=== PATIENT | female | born 1975 | race Asian ===

== ENCOUNTER 2017-09-25 00:01 | Inpatient (IN) | payer SELFPAY ==
[~2017-09-25] VITALS: Ht 162.6 cm; Wt 64.4 kg
[2017-09-25 00:20] VITALS: BP 113/67
[2017-09-25 00:51] LABS: BASOPHILS # (AUTO) 0.1 K/uL (0.00-0.22); BASOPHILS % (AUTO) 0.7 % (0.0-2.0); EOSINOPHILS # (AUTO) 0.1 K/uL (0-0.4); EOSINOPHILS % (AUTO) 1.4 % (0.0-4.0); HEMATOCRIT 36.8 % (36-48); HEMOGLOBIN 12.4 g/dL (12.0-16.0); LYMPHOCYTES # (AUTO) 2.2 K/uL (2.5-16.5); MEAN CORPUSCULAR HEMOGLOBIN 33 pg (27-31); MEAN CORPUSCULAR HGB CONC 34 g/dL (33-37); MEAN CORPUSCULAR VOLUME 98 fL (80-94); MONOCYTES # (AUTO) 0.4 K/uL (0.8-1.0); MONOCYTES % (AUTO) 4.1 % (1.7-9.3); NEUTROPHILS # (AUTO) 7.3 K/uL (1.8-7.7); NEUTROPHILS % (AUTO) 71.8 % (42.2-75.2); PLATELET COUNT (AUTO) 254 K/uL (140-450); RED BLOOD CELL COUNT(AUTO) 3.76 MIL/uL (4.20-5.40); RED CELL DISTRIBUTION WIDTH 12.4 % (11.6-13.7); WHITE BLOOD COUNT (AUTO) 10.1 K/uL (4.8-10.8)
[2017-09-25 01:06] LABS: APPEARANCE,URINE CLEAR (CLEAR); BILIRUBIN,URINE NEGATIVE (NEGATIVE); BLOOD, URINE NEGATIVE (NEGATIVE); COLOR,URINE YELLOW (YELLOW); LEUKOCYTE ESTERASE ,URINE NEGATIVE (NEGATIVE); NITRITE, URINE NEGATIVE (NEGATIVE); PH,URINE 7.5 (5.0-9.0); UGLUCOSE NEGATIVE (NEGATIVE)
[2017-09-25] MEDS: LACTATED RINGERS 1,000 ML IV SCH ×2 (01:53→03:43)
[2017-09-25] MEDS ORDERED: PREN-546 PO (02:07)
[2017-09-25] MEDS ORDERED: CALC500T2 PO (02:07)
[2017-09-25] MEDS ORDERED: CLINDAMYCIN 900 MG in DEXTROSE 5% 100 ML IV SCH (05:00)
[2017-09-25] MEDS ORDERED: CLINDAMYCIN 900 MG/6 ML VIAL IV ONE (06:15)
[2017-09-25] MEDS ORDERED: BUPIVACAINE-MPF 0.75% 10 ML VIAL INJ ONE (07:00)
[2017-09-25] MEDS ORDERED: OXYTOCIN 10 UNITS/ML VIAL ONE (07:08)
[2017-09-25] MEDS ORDERED: TRIAMCINOLONE 40 MG/ML 5ML VIAL ONE (07:08)
[2017-09-25] MEDS ORDERED: MORPHINE PRES FREE 10 MG/10 ML AMP IV ONE (07:10)
[2017-09-25] MEDS ORDERED: MIDAZOLAM 2 MG/2 ML VIAL ONE (07:10)
[2017-09-25] MEDS ORDERED: OXYTOCIN 20 UNITS in LACTATED RINGERS 1,000 ML IV SCH (07:33)
[2017-09-25] MEDS ORDERED: diphenhydrAMINE 50 MG/ML VIAL IVP PRN ×2 (07:35)
[2017-09-25] MEDS ORDERED: NALOXONE 0.4 MG/ML VIAL IVP PRN ×3 (07:35)
[2017-09-25] MEDS ORDERED: NALBUPHINE 10 MG/ML AMP IVP PRN (07:35)
[2017-09-25] MEDS ORDERED: HYDROmorphone PFS 2 MG/ML SYR IVP PRN (07:35)
[2017-09-25] MEDS ORDERED: MEPERIDINE 25 MG/ML SYR IVP PRN (07:35)
[2017-09-25] MEDS ORDERED: ONDANSETRON 4 MG/2 ML VIAL IVP PRN ×2 (07:35)
[2017-09-25] MEDS ORDERED: ONDANSETRON 4 MG/2 ML VIAL ONE (08:14)
[2017-09-25] MEDS ORDERED: OXYTOCIN 20 UNITS/LR PREMIX 1,000 ML IV ONE (08:14)
--- NOTE | 2017-09-25 08:28 | NUR ---
PATIENT HAS BEEN SCREENED AND CATEGORIZED LOW NUTRITION RISK. PATIENT WILL BE SEEN IN 7 DAYS. 10/01/[address]
[2017-09-25] MEDS ORDERED: oxyCODONE/APAP 5/325 MG 1 TAB TAB PO PRN (10:25)
[2017-09-25] MEDS ORDERED: METHYLERGONOVINE 0.2 MG/ML AMP IM PRN (10:25)
[2017-09-25] MEDS ORDERED: TEMAZEPAM 15 MG CAP PO PRN (10:25)
[2017-09-25] MEDS ORDERED: MEASLES, MUMPS, AND RUBELLA 1 VIAL SQVAC PRN (10:25)
[2017-09-25] MEDS: OXYTOCIN 20 UNITS in DEXT 5% / LACT RING 1,000 ML IV SCH ×2 (11:11→18:58)
[2017-09-25] MEDS: KETOROLAC 30 MG/ML VIAL IM/IVP SCH ×3 (12:26→23:34)
[2017-09-25] MEDS: BISACODYL 5 MG TABEC PO SCH (21:00)
[2017-09-26] MEDS ORDERED: OXYTOCIN 20 UNITS/LR PREMIX 1,000 ML IV ONE (02:46)
[2017-09-26] MEDS: OXYTOCIN 20 UNITS in DEXT 5% / LACT RING 1,000 ML IV SCH (03:00)
[2017-09-26] MEDS ORDERED: LACTATED RINGERS 1,000 ML IV SCH (05:45)
[2017-09-26 08:35] LABS: BASOPHILS # (AUTO) 0.1 K/uL (0.00-0.22); BASOPHILS % (AUTO) 0.9 % (0.0-2.0); EOSINOPHILS % (AUTO) 0.1 % (0.0-4.0); HEMATOCRIT 30.3 % (36-48); HEMOGLOBIN 10.1 g/dL (12.0-16.0); LYMPHOCYTES # (AUTO) 1.5 K/uL (2.5-16.5); LYMPHOCYTES % (AUTO) 11.1 % (20.5-51.1); MEAN CORPUSCULAR HEMOGLOBIN 33 pg (27-31); MEAN CORPUSCULAR HGB CONC 33 g/dL (33-37); MEAN CORPUSCULAR VOLUME 97 fL (80-94); MONOCYTES # (AUTO) 0.2 K/uL (0.8-1.0); MONOCYTES % (AUTO) 1.5 % (1.7-9.3); NEUTROPHILS # (AUTO) 11.5 K/uL (1.8-7.7); NEUTROPHILS % (AUTO) 86.4 % (42.2-75.2); PLATELET COUNT (AUTO) 233 K/uL (140-450); RED BLOOD CELL COUNT(AUTO) 3.12 MIL/uL (4.20-5.40); RED CELL DISTRIBUTION WIDTH 12.4 % (11.6-13.7); WHITE BLOOD COUNT (AUTO) 13.3 K/uL (4.8-10.8)
[2017-09-26] MEDS: HYDROcodone/APAP 5/325 MG 1 TAB TAB PO PRN ×2 (08:38→12:21)
[2017-09-26] MEDS: BISACODYL 5 MG TABEC PO SCH ×2 (11:00→23:07)
[2017-09-26] MEDS ORDERED: HYDROcodone/APAP 10/325 MG 1 TAB TAB PO PRN (16:55)
[2017-09-26] MEDS: IBUPROFEN 800 MG TAB PO PRN (17:26)
[2017-09-26] MEDS: oxyCODONE/APAP 5/325 MG 1 TAB TAB PO PRN (23:07)
[2017-09-26] MEDS: SIMETHICONE 80 MG TAB.CHEW PO PRN (23:07)
[2017-09-27] MEDS: BISACODYL 5 MG TABEC PO SCH (11:50)
[2017-09-27] MEDS: SIMETHICONE 80 MG TAB.CHEW PO PRN (12:01)
[2017-09-27] MEDS ORDERED: IBUPROFEN 800 MG TAB ONE (14:39)
[2017-09-27] MEDS: IBUPROFEN 800 MG TAB PO PRN (14:40)
[2017-09-27] MEDS ORDERED: SODIUM PHOSPHATE 118 ML ENEM RC SCH (16:30)
[2017-09-27] MEDS ORDERED: oxyCODONE/APAP 5/325 MG 1 TAB TAB ONE (20:21)
[2017-09-27] MEDS: oxyCODONE/APAP 5/325 MG 1 TAB TAB PO PRN (20:24)
[2017-09-28] MEDS ORDERED: oxyCODONE/APAP 5/325 MG 1 TAB TAB ONE ×2 (02:15→06:38)
[2017-09-28] MEDS: oxyCODONE/APAP 5/325 MG 1 TAB TAB PO PRN ×3 (02:18→12:45)
[2017-09-28] MEDS ORDERED: INFLUENZA VIRUS VACCINE QUAD 0.5 ML SYR IMVAC ONE (05:48)
[2017-09-28] MEDS: BISACODYL 5 MG TABEC PO SCH (12:40)
[2017-09-28] MEDS: IBUPROFEN 800 MG TAB PO PRN (17:03)
== END 2017-09-28 21:15 | disposition home or self-care (01) | DRG 766 ==
LOC: MLD 00:01 → MFCC 08:48
PROVIDERS: ADMIT Obstetrics & Gynecology; ATTEND Obstetrics & Gynecology
PROC: 10D00Z1 Extraction of Products of Conception, Low, Open Approach (ICD-10-PCS; principal; 2017-09-25 07:00)
PROC: 3E0234Z Introduction of Serum, Toxoid and Vaccine into Muscle, Percutaneous Approach (ICD-10-PCS; 2017-09-28)
DX: O34.211 Maternal care for low transverse scar from previous cesarean delivery (principal); O69.81X0 Labor and delivery complicated by cord around neck, without compression, not applicable or unspecified; Z37.0 Single live birth; Z88.0 Allergy status to penicillin; Z23 Encounter for immunization
CPT/HCPCS: 36415; 81003; 85025; 86592; 86886; 86900; 86901; 90658; 90715; J1885; J2250; J2270; J2405; J2590; J3301; J3490; J7060; J7120